=== PATIENT | female | born 1960 | race Caucasian/White ===

== ENCOUNTER 2016-02-10 10:33 | Emergency (ER) | payer OTHER ==
[~2016-02-10] VITALS: Ht 167.6 cm; Wt 75.5 kg
[~2016-02-10 10:33] MED LIST: NAPR40TA PO; NORC10TA2 PO
[2016-02-10 10:59] VITALS: BP 131/93; PULSE 100; RESP 16; TEMP 98.5; O2SAT 96
[2016-02-10] MEDS ORDERED: CLON.5 PO (11:09)
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
[2016-02-10] MEDS ORDERED: NORC5TAB PO (12:22)
== END 2016-02-10 12:39 | disposition home or self-care (01) ==
LOC: PHEFT 10:33
DX: M54.2 Cervicalgia (principal); F17.210 Nicotine dependence, cigarettes, uncomplicated
CPT/HCPCS: 99283